=== PATIENT | male | born 1960 | race Caucasian/White ===

== ENCOUNTER 2018-05-13 19:25 | Emergency (ER) | payer MEDICAID ==
[~2018-05-13] VITALS: Ht 167.6 cm; Wt 88.5 kg
[~2018-05-13 19:25] MED LIST: BENA20TA PO; BUPR-10 PO; COROTSOL OT; FAMO-90 PO; GABA300C PO; HUM SUBQ; IBUP-2213 PO; INSU100S10 SC; OFLO5SOL27 OT; TRAM50TA1 PO
[2018-05-13 19:34] VITALS: BP 121/65
--- NOTE | 2018-05-13 19:37 | NUR ---
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 REPORTS 40 BS AT HOME, CURRENTLY AT 74. PT REPORTS NO PREVIOUS EPISODE OF HYPOGLYCEMIA AND NO RECENT CHANGES TO MEDS. REPORTS WEAKNESS, AOX4, GCS 15. PMH: DM, APPENDECTOMY, CHOLECYSTECTOMY, LIVER FAILURE
--- NOTE | 2018-05-13 19:37 | NUR ---
Arjun alvarenga in [facility] - 05/13/18 at 1941 by LAMAR TO BED # 2 AMBULATORY, REPORT GIVEN TO JA LUNA.
--- NOTE | 2018-05-13 19:37 | NUR ---
TO BED # 11, AMBULATORY WITH WALKER, REPORT GIVEN TO DARIUSZ LUNA.
--- NOTE | 2018-05-13 22:03 | NUR ---
Patient appears to be resting comfortably in bed. Vital Signs within normal limits. Respirations even and unlabored.
[2018-05-13 23:40] VITALS: BP 127/72
--- NOTE | 2018-05-13 23:40 | NUR ---
Patient discharged with v/s stable. Written and verbal after care instructions given and explained. Patient verbalized understanding. Ambulatory with steady gait. All questions addressed prior to discharge. Advised to follow up with PMD. PATIENT LEFT WITHOUT DISCHARGE PAPERS
== END 2018-05-13 23:40 | disposition home or self-care (01) ==
LOC: MED 19:25
DX: E11.649 Type 2 diabetes mellitus with hypoglycemia without coma (principal); I10 Essential (primary) hypertension; Z90.49 Acquired absence of other specified parts of digestive tract
CPT/HCPCS: 82948; 99283